=== PATIENT | male | born 1955 | race Two or more races ===

== ENCOUNTER 2018-02-18 20:01 | Emergency (ER) | payer OTHER ==
--- NOTE | 2018-02-18 20:05 | EDPHY ---
H & P Time Seen by Provider: 02/18/18 20:05 HPI/ROS: CHIEF COMPLAINT: Syncope HISTORY OF PRESENT ILLNESS: Patient was going to a show tonight. Did not eat or drink anything all day. He had lightheaded feeling, dizziness, while he was going to the show while standing up, and had an episode of passing out and was out for a few seconds. EMS saw him and his lowest pre-hospital blood pressure was 73/48. He had some nausea before arrival but that is gone now. Denies headache or chest pain or shortness of breath or weakness or numbness in extremities or confusion. There was no reported seizure activity. Feels fine now. REVIEW OF SYSTEMS: Eye: no change in vision ENT: no sore throat Cardiac: Denies chest pain, denies palpitations Pulmonary: no cough or SOB Abdomen: no vomiting, diarrhea, abdominal pain Musculoskeletal: no back pain or neck pain Skin: no rash Neuro: no headache Constitutional: no fever : no urinary symptoms A comprehensive 10 point review of systems is otherwise negative aside from elements mentioned in the history of present illness. PAST MEDICAL HISTORY: High cholesterol; negative for diabetes or hypertension. Social history: Here with his General Appearance: Alert and conversant, cooperative. Eyes: No scleral icterus. ENT, Mouth: Normal mucous membranes. Respiratory: Normal respiratory effort, breath sounds equal, lungs are clear to auscultation. Cardiovascular: Regular rate and rhythm. No murmur. Gastrointestinal: Abdomen is soft and non tender. Neurological: Alert, face symmetric, normal motor and sensory in extremities. Normal [id number] bilaterally, fluent speech. Can lift each leg off the bed independently. Skin: Warm and dry, no rashes. Musculoskeletal: No peripheral edema. Psychiatric: Not agitated. Emergency Department course/MDM: More likely to be due to his lack of oral food or fluids all day, he was hypotensive prior to arrival, plan for EKG CBC chemistry and troponin, IV fluids and serial exams. I do not think it is likely he had stroke or pulmonary embolism. More likely to be orthostatic hypotension. Blood pressure normalized, and symptoms resolved in the emergency department with IV fluids. 2208: Ambulatory, asymptomatic. Not ataxic. I think malignant dysrhythmia is unlikely. He would like to be discharged which I think is reasonable. Constitutional: Initial Vital Signs Temperature (C) 36.6 C 02/18/18 20:07 Heart Rate 65 02/18/18 20:07 Respiratory Rate 18 02/18/18 20:07 Blood Pressure 89/59 L 02/18/18 20:07 O2 Sat (%) 96 02/18/18 20:07 O2 Delivery Mode Room Air Allergies/Adverse Reactions: No Known Allergies Allergy (Unverified 02/18/18 20:05) Medical Decision Making - Diagnostics EKG Interpretation: 12-lead EKG interpreted by me; official reading is in computer system. My interpretation is sinus rhythm with left axis and early anterior RS transition rate 58. Differential Diagnosis: Differential diagnosis considered for syncope including but not limited to vasovagal syncope, arrhythmia, dehydration, seizure, and blood loss. - Data Points Laboratory Results: Laboratory Results 02/18/18 20:14 02/18/18 20:14 02/18/18 02/18/18 02/18/18 20:36 20:14 20:14 WBC 10.95 10^3/uL H 10^3/uL (3.80-9.50) RBC 4.96 10^6/uL 10^6/uL (4.40-6.38) Hgb 15.3 g/dL g/dL (13.7-17.5) Hct 43.4 % % (40.0-51.0) MCV 87.5 fL fL (81.5-99.8) MCH 30.8 pg pg (27.9-34.1) MCHC 35.3 g/dL g/dL (32.4-36.7) RDW 11.9 % % (11.5-15.2) Plt Count 233 10^3/uL 10^3/uL (150-400) MPV 10.2 fL fL (8.7-11.7) Neut % (Auto) 45.9 % % (39.3-74.2) Lymph % (Auto) 43.1 % % (15.0-45.0) Mccreary % (Auto) 8.9 % % (4.5-13.0) Eos % (Auto) 1.4 % % (0.6-7.6) Baso % (Auto) 0.4 % % (0.3-1.7) Nucleat RBC Rel Count 0.0 % % (0.0-0.2) Absolute Neuts (auto) 5.03 10^3/uL 10^3/uL (1.70-6.50) Absolute Lymphs (auto) 4.72 10^3/uL H 10^3/uL (1.00-3.00) Absolute Monos (auto) 0.98 10^3/uL H 10^3/uL (0.30-0.80) Absolute Eos (auto) 0.15 10^3/uL 10^3/uL (0.03-0.40) Absolute Basos (auto) 0.04 10^3/uL 10^3/uL (0.02-0.10) Absolute Nucleated RBC 0.00 10^3/uL 10^3/uL (0-0.01) Immature Gran % 0.3 % % (0.0-1.1) Immature Gran # 0.03 10^3/uL 10^3/uL (0.00-0.10) Sodium 141 mEq/L mEq/L (135-145) Potassium 3.7 mEq/L mEq/L (3.3-5.0) Chloride 107 mEq/L mEq/L (97-110) Carbon Dioxide 23 mEq/l mEq/l (22-31) Anion Gap 11 mEq/L mEq/L (8-16) BUN 18 mg/dL mg/dL (7-23) Creatinine 1.2 mg/dL mg/dL (0.7-1.3) Estimated GFR > 60 Glucose 94 mg/dL mg/dL (70-100) Calcium 8.9 mg/dL mg/dL (8.5-10.4) POC Troponin I 0.00 ng/mL ng/mL (0.00-0.08) Medications Given: Discontinued Medications Sodium Chloride (Ns) 1,000 mls @ 0 mls/hr IV EDNOW ONE; Wide Open PRN Reason: Protocol Stop: 02/18/18 20:07 Last Admin: 02/18/18 20:26 Dose: 1,000 mls Sodium Chloride (Ns) 1,000 mls @ 0 mls/hr IV EDNOW ONE; Wide Open PRN Reason: Protocol Stop: 02/18/18 20:47 Last Admin: 02/18/18 21:09 Dose: 1,000 mls Point of Care Test Results: Chemistry 02/18/18 20:36 POC Troponin I 0.00 ng/mL ng/mL (0.00-0.08) Departure - Departure Disposition: Home, Routine, Self-Care Clinical Impression: Syncope Qualifiers: Syncope type: unspecified Qualified Code(s): R55 - Syncope and collapse Condition: Good Instructions: Syncope (ED) Referrals: Amol Bustamante DO [Doctor of Osteopathy] - As per Instructions
[2018-02-18] MEDS ORDERED: NS 1,000 ML IV ONE ×2 (20:06→20:46)
[2018-02-18 20:21] LABS: PLATELET COUNT 233 10^3/uL (150-400)
--- NOTE | 2018-02-18 20:31 | CPEKG ---
Test Reason : OPEN Blood Pressure : / mmHG Vent. Rate : 058 BPM Atrial Rate : 058 BPM P-R Int : 190 ms QRS Dur : 105 ms QT Int : 441 ms P-R-T Axes : 052 -50 028 degrees QTc Int : 434 ms Sinus rhythm Left axis deviation Abnormal R-wave progression, early transition Confirmed by Smooth Gonzalez ([id number]) on 02/18/2018 8:31:12 PM Referred By: Confirmed By:Smooth Gonzalez
[2018-02-18 22:24] VITALS: BP 119/82
== END 2018-02-18 22:24 | disposition home or self-care (01) ==
DX: R55 Syncope and collapse (principal); E86.9 Volume depletion, unspecified
CPT/HCPCS: 84484-PO